=== PATIENT | male | born 1990 | race Caucasian/White ===

== ENCOUNTER 2023-01-01 07:52 | Emergency (ER) | payer BC, SELFPAY ==
[2023-01-01 07:57] VITALS: BP 118/86; PULSE 88; RESP 16; TEMP 36.6; O2SAT 98; BMI 35.0
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
== END 2023-01-01 09:53 | disposition home or self-care (01) ==
PROVIDERS: Emergency Provider Emergency Medicine
DX: S30.1XXA Contusion of abdominal wall, initial encounter (principal); V43.52XA Car driver injured in collision with other type car in traffic accident, initial encounter
CPT/HCPCS: 99283

== ENCOUNTER 2023-10-01 10:03 | Outpatient (OUT) | payer BC, SELFPAY ==
--- NOTE | 2023-10-01 | ECG_ITS ---
[facility] Test Date: 2023-10-01 Pat Name: ANUEL SOLANO Department: Room: - Gender: Male Outside Sales Account Representative: : [id number] Requested By: [id number] Order Number: [id number] Reading MD: JANE IRENE Measurements Intervals [place] Rate: 60 P: 35 [place]: 154 QRS: 68 QRSD: 105 T: 31 QT: 433 QTc: 435 Interpretive Statements SINUS RHYTHM Compared to ECG 05/25/2021 01:48:46 Right-axis deviation no longer present Electronically Signed On 10-02-2023 6:39:24 EDT by JANE IRENE
== END 2023-10-01 10:04 | disposition home or self-care (01) ==
LOC: CARD 10:05
DX: R94.31 Abnormal electrocardiogram [ECG] [EKG] (principal)
CPT/HCPCS: 93005